=== PATIENT | male | born 1985 | race Two or more races ===

== ENCOUNTER 2018-02-05 23:07 | Emergency (ER) | payer OTHER ==
[~2018-02-05] VITALS: Ht 165.1 cm; Wt 60.0 kg
[2018-02-05 23:09] VITALS: BP 115/53
== END 2018-02-05 23:37 | disposition left against medical advice (07) ==
LOC: ER 23:13
DX: S61.402A Unspecified open wound of left hand, initial encounter (principal); Z53.21 Procedure and treatment not carried out due to patient leaving prior to being seen by health care provider; W34.00XA Accidental discharge from unspecified firearms or gun, initial encounter; Y93.89 Activity, other specified; Y92.89 Other specified places as the place of occurrence of the external cause; Y99.8 Other external cause status